=== PATIENT | male | born 1995 | race Caucasian/White ===

== ENCOUNTER 2024-05-24 07:51 | Outpatient (CLI) | payer BC ==
[2024-05-24] MEDS ORDERED: Iopamidol 300 61% 100 ML VIAL FS ONE (11:02)
== END 2024-05-24 07:52 | disposition home or self-care (01) ==
LOC: CSHCT 07:51
PROVIDERS: ATTEND Nurse Practitioner Family
DX: K76.0 Fatty (change of) liver, not elsewhere classified (principal); N20.0 Calculus of kidney
CPT/HCPCS: 74170; Q9967